=== PATIENT | female | born 1985 | race African-American/Black ===

== ENCOUNTER 2019-09-09 05:01 | Emergency (ER) | payer SELFPAY ==
[~2019-09-09] VITALS: Ht 165.1 cm; Wt 101.6 kg
[2019-09-09] MEDS ORDERED: KETOROLAC TROMETHAMINE 30 MG/ML VIAL IV STA (05:26)
[2019-09-09] MEDS ORDERED: MORPHINE SULFATE 5 MG/ML VIAL IV ONE (05:30)
[2019-09-09] MEDS ORDERED: MORPHINE SULFATE INJ 4 MG/ML INJ 1ML IV ONE (05:30)
[2019-09-09] MEDS ORDERED: SODIUM CHLORIDE 0.9% 50ML 50 ML ONE (05:42)
[2019-09-09] MEDS ORDERED: IOPAMIDOL 370 MG/ML 200 ML INFUS..BTL INJ ONE (05:42)
[2019-09-09] MEDS ORDERED: MORPHINE SULFATE INJ 4 MG/ML INJ 1ML ONE (05:43)
--- NOTE | 2019-09-09 06:26 | NUR ---
REPORT TO MARY SHIRLEY ALL QUESTIONS ANSWERED
--- NOTE | 2019-09-09 06:36 | Diagnostic Imaging Report ---
EXAM: CT Chest WITH contrast (PE Protocol), CT Abdomen and Pelvis WITHOUT contrast INDICATION: ^pain COMPARISON: None TECHNIQUE: Chest was scanned utilizing a multidetector helical scanner from the lung apex through the pubic symphysis after administration of IV contrast. Thin section reconstructions were obtained with special concentration on the pulmonary arteries. Coronal and sagittal reformations were obtained. Pulmonary embolism protocol was performed through the chest. IV CONTRAST: 100 mL of Omnipaque 350 COMPLICATIONS: None RADIATION DOSE: Total DLP: 642 mGy*cm Estimated effective dose: (DLP x 0.014 x size factor) mSv CTDIvol has been reviewed. It is below the limits set by the Radiation Protocol Committee (RPC). Dose modulation, iterative reconstruction, and/or weight based adjustment of the mA/kV was utilized to reduce the radiation dose to as low as reasonably achievable. FINDINGS: LINES/ TUBES: None. LUNGS AND AIRWAYS: No filling defect is identified within the pulmonary arteries to the segmental level. Minimal bibasilar atelectasis. No focal consolidation. Airways are normal. PLEURA: Possible trace left pleural effusion. HEART AND MEDIASTINUM: The thyroid gland is normal. No mediastinal, hilar or axillary lymphadenopathy. The heart is normal in size. There is no pericardial effusion. Ectasia of the ascending thoracic aorta up to 3.2 cm.. HEPATOBILIARY: No focal hepatic lesions. No biliary ductal dilation. GALLBLADDER: No radio-opaque stones or sludge. No wall thickening. SPLEEN: No splenomegaly. PANCREAS: No focal masses or ductal dilatation. ADRENALS: No adrenal nodules KIDNEYS/URETERS: No hydronephrosis. No cystic or solid mass lesions. No stones. GI TRACT: No abnormal distention, wall thickening, or evidence of bowel obstruction. Appendix is not discretely identified. PELVIC ORGANS/BLADDER: Unremarkable. LYMPH NODES: No lymphadenopathy. VESSELS: Unremarkable. PERITONEUM / RETROPERITONEUM: No free air or fluid. BONES: The visualized bony thorax is within normal limits. SOFT TISSUES: Small umbilical hernia. IMPRESSION: No acute abnormalities of the chest, abdomen, and pelvis. Signed by: Silvano Johnson MD on 09/09/2019 6:33 AM
--- NOTE | 2019-09-09 06:46 | Emergency Department Note ---
History of Present Illnes History of Present Illness Chief Complaint: Abdominal pain History of Present Illness This is a 33 year old female . Historian: Patient Arrival Mode: Car Onset (how long ago): day(s) (1) Location: left flank Quality: sharp Radiation: non-radiation, back Severity: moderate Onset quality: sudden Duration (how long): day(s) (1) Timing of current episode: constant Progression: waxing and waning Chronicity: new Relieving factors: none Exacerbating factors: none Associated symptoms: denies other symptoms Treatments prior to arrival: none Past Medical/Family History Physician Review I have reviewed the patient's past medical and family history. Any updates have been documented here. Past Medical History Recent Fever: No Clinical Suspicion of Infectio: No New/Unexplained Change in Ment: No Past Medical History: None Past Surgical History: T&A Social History Smoking Cessation: Never Smoker Counseling Performed: No Alcohol Use: Occasional Any Illegal Drug Use: No TB Exposure/Symptoms: No Physically hurt or threatened: No Family History Family history of heart diseas: No Other Last Tetanus: UNKNOWN Any Pre-Existing Lines (PICC,: No Is patient up to date on immun: No Last Flu: NO Last Pneumovax: NO Review of Systems Review of Systems Constitutional: no symptoms EENTM: no symptoms Cardiovascular: no symptoms Respiratory: no symptoms Gastrointestinal: no symptoms Genitourinary: no symptoms Musculoskeletal: no symptoms, back pain Neurological: no symptoms Psychological: no symptoms Endocrine: no symptoms Hematological/Lymphatic: no symptoms Review of other systems All other systems reviewed and negative. Physical Exam Related Data Allergies: Coded Allergies: No Known Allergies (Unverified , 09/09/19) Triage Vital Signs Vital Signs Date Time Temp Pulse Resp B/P (MAP) Pulse Ox O2 Delivery O2 Flow Rate FiO2 09/09/19 05:05 98.7 88 20 153/95 96 Vital signs reviewed: Yes Physical Exam CONSTITUTIONAL Constitutional: well-developed, well-nourished HENT HENT: normocephalic, atraumatic, oropharynx clear/moist, nose normal HENT L/R: left ext ear normal, right ext ear normal EYES Eyes: PERRL, conjunctivae normal NECK Neck: ROM normal PULMONARY Pulmonary: effort normal, breath sounds normal CARDIOVASCULAR Cardiovascular: regular rhythm, heart sounds normal, capillary refill normal, normal rate GASTROINTESTINAL Abdominal: soft, nontender, bowel sounds normal GENITOURINARY Genitourinary: exam deferred SKIN Skin: warm, dry MUSCULOSKELETAL Musculoskeletal: ROM normal, tenderness (left flank) NEUROLOGICAL Neurological: alert, oriented x 3, no gross motor or sensory deficits PSYCHOLOGICAL Psychological: mood/affect normal, judgement normal Results Laboratory Lab results reviewed: Yes Imaging Imaging results reviewed: Yes Procedures 12 Lead ECG Interpretation Tie Up Worker: Interpreted by ED physician Date: September 09, 2019 Time: 05:05 Rhythm: sinus rhythm Rate: normal BPM: 84 QRS axis: normal ST segments normal: Yes T waves normal: Yes Clinical Impression: normal ECG Critical Care Time Subsequent provider I assumed direction of critical care for this patient from another provider of my specialty. Assessment & Plan Assessment & Plan Problems: (1) Urinary tract infection (2) Abdominal wall pain in left flank Reassessment Reassessment time: 06:46 Reassessment improved Last Vital Signs Date Time Temp Pulse Resp B/P (MAP) Pulse Ox O2 Delivery O2 Flow Rate FiO2 09/09/19 05:05 98.7 88 20 153/95 96 Medications in the ED Ketorolac Tromethamine 15 mg ONCE STAT IV Last administered on 09/09/19at 05:39; Admin Dose 15 MG; Start 09/09/19 at 05:26; Stop 09/09/19 at 05:27 Morphine Sulfate 2 mg ONCE ONCE IV Last administered on 09/09/19at 06:26; Admin Dose 2 MG; Start 09/09/19 at 05:30; Stop 09/09/19 at 06:31; Status DC Sodium Chloride 50 ml @ ud STK-MED ONCE .ROUTE ; Start 09/09/19 at 05:42; Stop 09/09/19 at 05:37; Status DC Iopamidol 74,000 mg STK-MED ONCE INJ ; Start 09/09/19 at 05:42; Stop 09/09/19 at 05:37; Status DC Morphine Sulfate 4 mg STK-MED ONCE .ROUTE ; Start 09/09/19 at 05:43; Stop 09/09/19 at 05:38; Status DC Morphine Sulfate 2 mg ONCE ONCE IV ; Start 09/09/19 at 05:30; Stop 09/09/19 at 05:31 MIGUEL JUÁREZ MD September 09, 2019 06:46
[2019-09-09 06:53] VITALS: BP 140/79
[2019-09-09] MEDS ORDERED: HYDROCODONE/APAP 5MG-325MG TAB PO ONE (07:15)
== END 2019-09-09 06:55 | disposition home or self-care (01) ==
LOC: FSED 05:01
DX: R10.12 Left upper quadrant pain (principal); R10.11 Right upper quadrant pain; M54.5 Low back pain; R07.89 Other chest pain; N39.0 Urinary tract infection, site not specified; K42.9 Umbilical hernia without obstruction or gangrene
CPT/HCPCS: 71260; 74176; 80053; 81003; 81025; 82553; 84484; 85025; 93005; 99284; J1885; J2270; Q9967